=== PATIENT | male | born 1980 | race African-American/Black ===

== ENCOUNTER 2017-02-08 13:10 | Emergency (ER) ==
[2017-02-08 14:15] LABS: BILIRUBIN URINE NEGATIVE (NEGATIVE); BLOOD URINE NEGATIVE (NEGATIVE); COLOR STRAW; GLUCOSE URINE NEGATIVE (NEGATIVE); LEUKOCYTES URINE NEGATIVE (NEGATIVE); NITRITE URINE NEGATIVE (NEGATIVE); PROTEIN URINE NEGATIVE (NEGATIVE); TURBIDITY URINE CLEAR (CLEAR); URINE CULTURE NEEDED? NO; URINE MICRO REVIEW NEEDED? NO; URINE SOURCE CLEAN CATCH; UROBILINOGEN URINE NORMAL (NORMAL)
[2017-02-08 14:16] LABS: UR EPITHELIAL CELLS <10 /HPF (<10); URINE BACTERIA NEGATIVE /HPF; URINE RBC <10 /HPF (<10); URINE WBC <10 /HPF (<10)
[2017-02-08 14:21] LABS: BASO% 0.5 % (0.0-0.8); EOS# 0.21 X1000 (0.0-0.7); EOS% 2.7 % (0.0-10.0); HEMATOCRIT 44.8 % (42.0-52.0); HEMOGLOBIN 14.3 g/dL (14.0-18.0); LYMPH# 2.17 X1000 (1.2-3.4); MANUAL DIFF NEEDED? NO; MCH 26.9 PG (27-31); MCHC 31.9 g/dL (33-37); MCV 84.4 FL (81-99); MONO# 0.88 X1000 (0.11-0.59); MONO% 11.3 % (1.7-9.3); MPV 9.4 FL (7.4-10.4); NEUT% 57.5 % (42.2-75.2); PLT 272 X1000 (130-400); RBC 5.31 XMIL (4.7-6.1)
[2017-02-08 14:23] LABS: PH URINE 5.5; SP GRAVITY URINE 1.002
[2017-02-08 14:46] LABS: AGAP 13; ALBUMIN 4.3 g/dL (3.5-5.0); ALKALINE PHOSPHATASE 62 U/L (32-122); BUN 12 mg/dL (8-22); CALCIUM 9.1 mg/dL (8.8-10.2); CHLORIDE 99 mmol/L (98-107); COSMO 276; GOT 18 U/L (10-34); GPT 10 U/L (10-44); LIPASE 81 U/L (13-60); POTASSIUM 3.6 mmol/L (3.5-5.1); SODIUM 138 mmol/L (136-145); TCO2 26 mmol/L (25-35); TOTAL BILIRUBIN 0.26 mg/dL (0.20-1.00); TOTAL PROTEIN 7.9 g/dL (6.3-8.3)
[2017-02-08 15:01] LABS: AMYLASE 2976 U/L (20-200)
--- NOTE | 2017-02-08 16:48 | PROVIDER DOCUMENTATION ---
HPI-Abdominal Pain/GI Problem - General Source: patient - History of Present Illness-ABD Nature of Presenting Problems: Reports to er with cc of abd pain x 2 days. Hx of pancreatitis. Reports nondrinker. Denies brent,uriah ortega. Abdominal Pain Onset Location: reports: epigastric Quality of Pain: reports: aching Severity in ED: reports: moderate Onset/Duration: reports: 2 days ago Timing: reports: still present Bruising or Bleeding Gums?: No Similar Symptoms Previously?: Yes Recently seen or treated by another doctor?: No <Renan Knapp - Last Filed: 02/08/17 16:44> <North Madden - Last Filed: 02/08/17 17:03> - General Chief Complaint: Abdominal Pain Stated Complaint: ABD PAIN Time Seen by Provider: 02/08/17 15:42 Allergies/Adverse Reactions: Patient Allergies Allergy/AdvReac Type Severity Reaction Status Date / Time No Known Allergies Allergy Verified 02/08/17 16:13 Home Medications: Home Medication List Medication Instructions Recorded Confirmed Last Taken Type Carvedilol [Coreg] 12.5 mg PO Q12HR #0 tablet 03/17/14 10/13/15 07/29/15 08:00 Rx Furosemide [Lasix] 40 mg PO DAILY #30 tablet 03/17/14 10/13/15 07/29/15 08:00 Rx Lisinopril 20 mg PO DAILY #30 tablet 03/17/14 10/13/15 07/29/15 08:00 Rx Ciprofloxacin HCl [Cipro] 500 mg PO BID #14 tablet 02/08/17 Unknown Rx Esomeprazole [Nexium] 40 mg PO DAILY #30 capsule 02/08/17 Unknown Rx Metronidazole [Flagyl] 500 mg PO BID #14 tablet 02/08/17 Unknown Rx Review of Systems - Adult - REVIEW OF SYSTEMS - ADULT Constitutional: denies: chills, fever, fatique Eyes: reports: no symptoms reported Ears, Nose, Mouth & Throat: denies: ear pain, sinus problem, throat pain Cardiovascular: reports: no symptoms reported Respiratory: denies: cough, shortness of breath, wheezing Gastrointestinal: reports: abdominal pain. denies: diarrhea, nausea, vomiting Genitourinary: reports: no symptoms reported Musculoskeletal: reports: no symptoms reported Integumentary: reports: no symptoms reported Neurological: reports: no symptoms reported Psychiatric: reports: no symptoms reported Endocrine: reports: no symptoms reported Hematologic/Lymphatic: reports: no symptoms reported Allergic/Immunologic: reports: no symptoms reported All Other Systems: Reviewed and Negative <Renan Knapp - Last Filed: 02/08/17 16:44> Past History - Adult - PAST MEDICAL HISTORY-ADULT Review of Records: reports: Nursing Assessment Review, Medications Reviewed Major Childhood Illnesses: reports: denies history Cardiovascular: reports: cardiac disease, CHF, HTN Respiratory: reports: denies history Gastrointestinal: reports: denies history Obstetrical/Gynecological: reports: denies history Genitourinary: reports: denies history Musculoskeletal: reports: denies history Neurological: reports: denies history Endocrine/Immune: reports: denies history, Diabetes Other Conditions: reports: denies history - PRIOR SURGERIES/PROCEDURES Surgical/Procedure History: reports: none - PRIOR HOSPITALIZATIONS Prior Hospitalizations: reports: none - IMMUNIZATION STATUS Childhood Immunizations: See Nurse Assessment Flu Vaccine: See Nurse Assessment - FAMILY HISTORY Family History: reviewed, not pertinent - SOCIAL HISTORY Smoking: cigarettes, less than 1 pack/day Provider spent 3-5 mins advising pt. on dangers of tobacco.: Discussed manners to quit use, and f/u contacts for add'l counseling. Substance Use: marijuana <Renan Knapp - Last Filed: 02/08/17 16:44> Physical Exam-General - PHYSICAL EXAM-ADULT Initial Vital Signs Reviewed: Yes - CONSTITUTIONAL General Appearance: appears well, alert, mild distress - EYES Eyes: PERRL/EOMI - HEAD, EARS, NOSE, MOUTH & THROAT HENMT: moist mucous membranes, normal ENT inspection, TMs normal, pharynx normal - RESPIRATORY Respiratory: chest non-tender, lungs clear, normal breath sounds, no pleuratic chest pain, no respiratory distress, no accessory muscle use - CARDIOVASCULAR Cardiovascular: regular rate, rhythm - GASTROINTESTINAL (ABDOMEN) Abdominal Exam: soft, no organomegaly, no pulsatile mass, tenderness (ttp epigastric pain) - MUSCULOSKELETAL Back Exam: normal inspection, no CVA tenderness, no vertebral tenderness Extremity: normal range of motion, non-tender - SKIN Integumentary: normal color, normal turgor, warm/dry - NEUROLOGIC Neurologic: grossly normal - PSYCHIATRIC Psych/Mental Status: normal mood/affect, normal thought content, normal thought process, oriented x 3 <Renan Knapp - Last Filed: 02/08/17 16:44> Progress - PLAN OF CARE/RESULTS Progress/Plan/Lab Results: Orders Category Date Time Status Saline Loc NOW Care 02/08/17 15:46 Active NPO Diet 02/08/17 13:[address] ABD/PELVIS W/ IV CONT ONLY [CT] Stat Exams 02/08/17 15:46 Ordered AMYLASE [CHEM] Stat Lab 02/08/17 13:58 Completed CBC WITH ELECTRONIC DIFF [HEME] Stat Lab 02/08/17 13:30 Completed COMPREHENSIVE METABOLIC PANEL [CHEM] Stat Lab 02/08/17 13:58 Completed LIPASE [CHEM] Stat Lab 02/08/17 13:58 Completed URINALYSIS W/POSS RFLX CULT [URINALYSIS] Stat Lab 02/08/17 14:02 Completed Vital Signs - 24 hr 02/08/17 13:51 Temperature 97.8 F Pulse Rate 63 Respiratory 16 Rate Blood Pressure 130/95 O2 Sat by Pulse 100 Oximetry Laboratory Tests 02/08/17 02/08/17 02/08/17 13:30 13:58 14:02 WBC 7.76 RBC 5.31 Hgb 14.3 Hct 44.8 MCV 84.4 MCH 26.9 L MCHC 31.9 L RDW Std Deviation 15.2 H Plt Count 272 MPV 9.4 Neut % (Auto) 57.5 Lymph % (Auto) 28.0 [place] % (Auto) 11.3 H Eos % (Auto) 2.7 Baso % (Auto) 0.5 Neut # (Auto) 4.46 Lymph # (Auto) 2.17 [place] # (Auto) 0.88 H Eos # (Auto) 0.21 Baso # (Auto) 0.04 Sodium 138 Potassium 3.6 Chloride 99 Carbon Dioxide 26 Anion Gap 13 BUN 12 Creatinine 1.0 Estimated GFR/1.73 m2 > 60 BUN/Creatinine Ratio 12 Glucose 105 H Calculated Osmolality 276 Calcium 9.1 Total Bilirubin 0.26 AST 18 ALT 10 Alkaline Phosphatase 62 Total Protein 7.9 Albumin 4.3 Globulin 3.6 Albumin/Globulin Ratio 1.2 Amylase 2976 H Lipase 81 H Urine Source CLEAN CATCH Urine Color STRAW Urine Turbidity CLEAR Urine pH 5.5 Ur Specific [place] 1.002 Urine Protein NEGATIVE Ur Glucose (Stick) NEGATIVE Ur Ketones (Stick) NEGATIVE Urine Blood NEGATIVE Urine Nitrite NEGATIVE Urine Bilirubin NEGATIVE Urobilinogen Dipstick NORMAL Urine Leukocytes NEGATIVE Urine WBC (Auto) <10 Urine RBC (Auto) <10 U Epithel Cells (Auto) <10 Urine Bacteria (Auto) NEGATIVE <Renan Knapp - Last Filed: 02/08/17 16:44> - PLAN OF CARE/RESULTS Progress/Plan/Lab Results: Laboratory Tests 02/08/17 02/08/17 02/08/17 13:30 13:58 14:02 WBC 7.76 RBC 5.31 Hgb 14.3 Hct 44.8 MCV 84.4 MCH 26.9 L MCHC 31.9 L RDW Std Deviation 15.2 H Plt Count 272 MPV 9.4 Neut % (Auto) 57.5 Lymph % (Auto) 28.0 [place] % (Auto) 11.3 H Eos % (Auto) 2.7 Baso % (Auto) 0.5 Neut # (Auto) 4.46 Lymph # (Auto) 2.17 [place] # (Auto) 0.88 H Eos # (Auto) 0.21 Baso # (Auto) 0.04 Sodium 138 Potassium 3.6 Chloride 99 Carbon Dioxide 26 Anion Gap 13 BUN 12 Creatinine 1.0 Estimated GFR/1.73 m2 > 60 BUN/Creatinine Ratio 12 Glucose 105 H Calculated Osmolality 276 Calcium 9.1 Total Bilirubin 0.26 AST 18 ALT 10 Alkaline Phosphatase 62 Total Protein 7.9 Albumin 4.3 Globulin 3.6 Albumin/Globulin Ratio 1.2 Amylase 2976 H Lipase 81 H Urine Source CLEAN CATCH Urine Color STRAW Urine Turbidity CLEAR Urine pH 5.5 Ur Specific [place] 1.002 Urine Protein NEGATIVE Ur Glucose (Stick) NEGATIVE Ur Ketones (Stick) NEGATIVE Urine Blood NEGATIVE Urine Nitrite NEGATIVE Urine Bilirubin NEGATIVE Urobilinogen Dipstick NORMAL Urine Leukocytes NEGATIVE Urine WBC (Auto) <10 Urine RBC (Auto) <10 U Epithel Cells (Auto) <10 Urine Bacteria (Auto) NEGATIVE Orders Category Date Time Status Saline Loc NOW Care 02/08/17 15:46 Active NPO Diet 02/08/17 13:[address] ABD/PELVIS W/ IV CONT ONLY [CT] Stat Exams 02/08/17 15:46 Taken AMYLASE [CHEM] Stat Lab 02/08/17 13:58 Completed CBC WITH ELECTRONIC DIFF [HEME] Stat Lab 02/08/17 13:30 Completed COMPREHENSIVE METABOLIC PANEL [CHEM] Stat Lab 02/08/17 13:58 Completed LIPASE [CHEM] Stat Lab 02/08/17 13:58 Completed URINALYSIS W/POSS RFLX CULT [URINALYSIS] Stat Lab 02/08/17 14:02 Completed Metronidazole 500 mg/Ns [Flagyl 500 mg/Ns] 100 ml Med 02/08/17 17:00 Active IV NOW Vital Signs Temp Pulse Resp BP Pulse Ox 02/08/17 13:51 97.8 F 63 16 130/95 100 No Known Allergies Allergy (Verified 02/08/17 16:13) Carvedilol [Coreg] 12.5 mg PO Q12HR #0 tablet 03/17/14 Furosemide [Lasix] 40 mg PO DAILY #30 tablet 03/17/14 Lisinopril 20 mg PO DAILY #30 tablet 03/17/14 Dietary Diet NPO Start SatFeb 08 1353 I&O 02/07/17 02/08/17 02/09/17 06:59 06:59 06:59 Output Total 90 Balance -90 Laboratory 02/08/17 02/08/17 02/08/17 14:02 13:58 13:30 WBC 7.76 RBC 5.31 Hgb 14.3 Hct 44.8 MCV 84.4 MCH 26.9 L MCHC 31.9 L RDW Std Deviation 15.2 H Plt Count 272 MPV 9.4 Neut % (Auto) 57.5 Lymph % (Auto) 28.0 [place] % (Auto) 11.3 H Eos % (Auto) 2.7 Baso % (Auto) 0.5 Neut # (Auto) 4.46 Lymph # (Auto) 2.17 [place] # (Auto) 0.88 H Eos # (Auto) 0.21 Baso # (Auto) 0.04 Sodium 138 Potassium 3.6 Chloride 99 Carbon Dioxide 26 Anion Gap 13 BUN 12 Creatinine 1.0 Estimated GFR/1.73 m2 > 60 BUN/Creatinine Ratio 12 Glucose 105 H Calculated Osmolality 276 Calcium 9.1 Total Bilirubin 0.26 AST 18 ALT 10 Alkaline Phosphatase 62 Total Protein 7.9 Albumin 4.3 Globulin 3.6 Albumin/Globulin Ratio 1.2 Amylase 2976 H Lipase 81 H Urine Source CLEAN CATCH Urine Color STRAW Urine Turbidity CLEAR Urine pH 5.5 Ur Specific [place] 1.002 Urine Protein NEGATIVE Ur Glucose (Stick) NEGATIVE Ur Ketones (Stick) NEGATIVE Urine Blood NEGATIVE Urine Nitrite NEGATIVE Urine Bilirubin NEGATIVE Urobilinogen Dipstick NORMAL Urine Leukocytes NEGATIVE Urine WBC (Auto) <10 Urine RBC (Auto) <10 U Epithel Cells (Auto) <10 Urine Bacteria (Auto) NEGATIVE Pt is feeling well. Will d/c home. He is in agreement. - CT/MRI 1 CT Study: Abdomen, Pelvis CT Results: small area of diverticulitis left descending colon <North Madden Guero - Last Filed: 02/08/17 17:03> Departure <Renan Knapp - Last Filed: 02/08/17 16:44> - Departure Time of Disposition Order: 17:02 Certified Medical Emergency: Emergent <North Madden - Last Filed: 02/08/17 17:03> - Departure DIAGNOSIS: Diverticulitis Qualifiers: Diverticulitis site: large intestine Diverticulitis bleeding: without bleeding Diverticulitis complication: without perforation or abscess Qualified Code(s): K57.32 - Diverticulitis of large intestine without perforation or abscess without bleeding Disposition: HOME 01 Condition: Good Additional Instructions: Take medication as prescribed. Follow up with a weather forcaster. Return to the ER for any new or worsening symptoms. ED Follow Up Instructions: You have been treated by a care provider in the Emergency Department. These instructions are being provided to you so you can have an understanding of how to care for yourself upon discharge. Upon discharge from the Emergency Department, you are responsible for making arrangements for follow-up care by a physician of your choice. Take all prescribed medications as directed. Return to the Emergency Department immediately for any new or worsening symptoms. You may call the Physician Referral phone number at [phone] to obtain a list of Physicians who are taking new patients. Prescriptions: Ciprofloxacin HCl [Cipro] 500 mg PO BID #14 tablet Metronidazole [Flagyl] 500 mg PO BID #14 tablet Esomeprazole [Nexium] 40 mg PO DAILY #30 capsule Referrals: Jose Roberto Beach [Primary Care Provider] - Lisa Davis MD [STAFF PHYSICIAN] - Attestation - Scribe Verification/Attestation Scribe:: Renan Knapp Acting as Scribe for:: Northunique Madden Scribe documention review:: This chart was documented by a scribe and accurately reflects the service the provider performed and the decisions made by the provider. <Renan Knapp - Last Filed: 02/08/17 16:44> - Physician/ ROSEY Attestation Patient care was provided by Advanced Practice Provider:: Yes Advanced Practice Provider:: North Madden Advanced Practice Provider documentation review:: The Mid-level provider documentation, treatment plan and medical decision making was reviewed by the physician who agrees with all treatment and medical decision making by the MLP. <North Madden - Last Filed: 02/08/17 17:03> Physician Attestation
[2017-02-08] MEDS ORDERED: FLAGYL 500 MG/NS 100 ML IV ONE (17:00)
--- NOTE | 2017-02-08 18:05 | Diag Imaging Result Document ---
PROCEDURE NAME: CT ABD/PELVIS W/ IV CONT ONLY - 02/08/2017 STUDY: CT abdomen and pelvis with intravenous contrast. Normal spleen, adrenal glands, pancreas, and gallbladder. I believe there is mild fatty infiltration of the liver. No focal hepatic abnormality. Normal enhancement of the kidneys. No hydronephrosis. Normal aorta. No bowel obstruction. There are mild inflammatory changes near the junction of the descending and sigmoid colon. There are scattered diverticula in this location. No free air. No abscess. No inflammation about the cecum. The urinary bladder is moderately distended. IMPRESSION: 1. Small focal diverticulitis in the distal descending colon near the junction with the sigmoid colon. 2. Mild fatty infiltration of the liver. A preliminary report was given at 4:57 p.m.
[2017-02-08 18:10] VITALS: BP 143/96
== END 2017-02-08 18:15 | disposition home or self-care (01) ==
LOC: ED 13:10
DX: K57.32 Diverticulitis of large intestine without perforation or abscess without bleeding (principal); K76.0 Fatty (change of) liver, not elsewhere classified; R10.13 Epigastric pain; R10.816 Epigastric abdominal tenderness; I50.9 Heart failure, unspecified; I10 Essential (primary) hypertension; E11.9 Type 2 diabetes mellitus without complications; F17.210 Nicotine dependence, cigarettes, uncomplicated; Z79.899 Other long term (current) drug therapy; Z71.6 Tobacco abuse counseling
CPT/HCPCS: 36415; 74177; 80053; 81001; 82150; 83690; 85025; 96365; Q9967; S0030